=== PATIENT | male | born 1965 | race Two or more races ===

== ENCOUNTER 2025-03-23 10:15 | Day surgery (SDC) | payer MEDICAID ==
[2025-03-18 12:12] LABS: Urine Bacteria None Seen /hpf (None Seen)
[2025-03-18 12:21] LABS: Basophils # (auto) 0.1 10 ^3/uL (0-0.2); Basophils % (auto) 1.4 % (0.0-2.0); Eosinophils # (auto) 0.3 10 ^3/uL (0-0.8); Eosinophils % (auto) 5.5 % (0.0-7.0); Hematocrit 40.8 % (41.0-53.0); Hemoglobin 13.8 g/dL (13.5-17.5); Lymphocytes # (auto) 2.2 10 ^3/uL (0.4-5.4); Lymphocytes % (auto) 39.1 % (10.0-50.0); Mean Corpuscular Hemoglobin 31.2 pg (28.0-32.0); Mean Corpuscular Hgb Conc. 33.8 g/dL (32.0-36.0); Mean Corpuscular Volume 92.2 fL (80.0-100.0); Monocytes # (auto) 0.4 10 ^3/uL (0-1.3); Monocytes % (auto) 6.5 % (0.0-12.0); Neutrophils # (auto) 2.6 10 ^3/uL (1.6-8.6); Neutrophils % (auto) 47.5 % (37.0-80.0); Nucleated Red Blood Cells % 0.1 %; Platelet Count (auto) 203 10^3/uL (140-450); Red Blood Cells 4.42 10^6/uL (4.5-5.90); Red Cell Distribution Width 14.6 % (11.8-14.3); White Blood Cell 5.5 10^3/uL (4.4-10.8)
[2025-03-18 12:36] LABS: INR 0.99 (0.9-1.15); Partial Thromboplastin Time 24.9 SEC (24.5-34.5); Prothrombin Time 10.5 sec (9.3-11.8)
[2025-03-18 12:42] LABS: Alanine Aminotransferase 24 U/L (7-40); Albumin 4.5 g/dL (3.2-4.8); Alkaline Phosphatase 95 U/L (46-116); Anion Gap 1 (5-15); Aspartate Aminotransferase 18 U/L (13-40); BUN/Creatinine Ratio 11.9 (10.0-20.0); Bilirubin, Total 0.5 mg/dL (0.2-1.0); Blood Urea Nitrogen 13 mg/dL (9-23); Calcium 9.9 mg/dL (8.7-10.4); Carbon Dioxide 31 mmol/L (20-31); Glucose 84 mg/dL (74-106); Potassium 4.4 mmol/L (3.5-5.1); Sodium 143 mmol/L (136-145); Total Protein 6.7 g/dL (5.7-8.2)
[2025-03-18 12:45] LABS: Chloride 111 mmol/L (98-107)
[2025-03-18 12:56] LABS: Urine Blood Negative /uL (Negative); Urine Clarity Clear (Clear); Urine Color Yellow (Yellow); Urine Mucus FEW (None Seen); Urine Protein, UAD TRACE (Negative); Urine Specific Gravity 1.033 (1.001-1.035); Urine Squamous Epithelial Cell None Seen /hpf (<5); Urine Urobilinogen 2 mg/dL (Negative); Urine WBC < 1 /HPF (0-3); Urine pH 6.5 (5.0-9.0)
[~2025-03-23] VITALS: Ht 180.3 cm; Wt 72.1 kg
[~2025-03-23 10:15] MED LIST: ASCO500T11 GT; CHOL20007 OR; HYDR-4072 PO; METH50006 SL
[2025-03-23] MEDS ORDERED: ceFAZolin 2 GM/D5W50ml 50 ML IV ONE (11:27)
[2025-03-23] MEDS ORDERED: BUPIVACAINE 0.5% P/F INJ 10 ML VIAL ONE (11:40)
--- NOTE | 2025-03-23 12:01 | DVHOP2 ---
Operative Report - 2 Report Details Date: 03/23/25 Preop Diagnosis: 1. Left foot metatarsalgia 2. Left foot pain Postop Diagnosis: Left foot metatarsalgia Surgeon: Leidy Gustafson MD Anesthesiologist: See anesthesia Anesthesia: Mac Consent: The patient was informed of the risks and benefits of the procedure. These include but are not limited to complications of anesthesia, postoperative infection, incomplete relief of symptoms, recurrence of symptoms, damage to blood vessels, nerves and tendons, deep venous thrombosis, pulmonary embolism and possible need for repeat surgery in the future. Complications: None Estimated Blood Loss: Minimal Fluids: See anesthesia Findings: Consistent with diagnosis Indications for Surgery: Worsening left foot pain Name of Procedure Performed 1. Left foot second metatarsal earl osteotomy (81452) 2. Left foot third metatarsal earl osteotomy (39653) 3. Left foot fourth metatarsal earl osteotomy (39240) Procedure Details Procedure Details: PRE-PROCEDURE INFORMATION: In the pre-op holding area, the extremity to be operated on was clearly marked and the patient verified correct laterality of the marking. The patient was transferred to the OR table and placed in a supine position. A timeout was performed in which identification of the correct patient, procedure, location, and materials was done. The left foot and leg were prepped and draped in normal sterile fashion. DESCRIPTION OF PROCEDURE: Attention was directed to the right 2nd metatarsal head where a stab incision was made. The incision was deepened through blunt and sharp dissection. Care was taken to avoid damage to neurovascular structures throughout dissection. Incision was carried to the level of the 2nd metatarsal head or on fluoroscopy as well as preoperative x-rays, it was noted there was significant plantar flexion of the metatarsal head. Using an MIS bur, the an osteotomy was performed across the neck of the metatarsal head. The metatarsal head was then able to float. It was noted off intraoperative fluoroscopy, there was significant reduction deformity. Attention was directed to the right 3rd metatarsal head where a stab incision was made. The incision was deepened through blunt and sharp dissection. Care was taken to avoid damage to neurovascular structures throughout dissection. Incision was carried to the level of the 3rd metatarsal head or on fluoroscopy as well as preoperative x-rays, it was noted there was significant plantar flexion of the metatarsal head. Using an MIS bur, the an osteotomy was performed across the neck of the metatarsal head. The metatarsal head was then able to float. It was noted off intraoperative fluoroscopy, there was significant reduction deformity. Attention was directed to the right 4th metatarsal head where a stab incision was made. The incision was deepened through blunt and sharp dissection. Care was taken to avoid damage to neurovascular structures throughout dissection. Incision was carried to the level of the 4th metatarsal head or on fluoroscopy as well as preoperative x-rays, it was noted there was significant plantar flexion of the metatarsal head. Using an MIS bur, the an osteotomy was performed across the neck of the metatarsal head. The metatarsal head was then able to float. It was noted off intraoperative fluoroscopy, there was significant reduction deformity. All surgical wounds were irrigated copiously with saline and closed in layers with the aforementioned suture material. A dry sterile dressing was placed on the surgical extremity. The patient was placed in a postop shoe POSTOPERATIVE INFORMATION: The patient tolerated the above noted procedure and anesthesia well and was transferred to the PACU with vital signs stable, and vascular status intact with capillary refill intact to all digits. Postoperative instructions reviewed in detail with the patient with written instructions provided. Patient will return to clinic in approximately 10-14 days for first postoperative visit. Patient has the number of the clinic and was instructed to call prior to that time should any problems, questions, or concerns arise. Condition Good Disposition Home LEIDY GUSTAFSON DPM Mar 23, 2025 12:01
[2025-03-23] MEDS ORDERED: MIDAZOLAM HCL 2MG/2ML 2ml VIAL (1mg/ml) ONE (12:42)
[2025-03-23] MEDS ORDERED: fentaNYL CITRATE 100 MCG/2 ML VL ONE (12:42)
[2025-03-23] MEDS ORDERED: DexAMETHasone SOD PHOS 10MG/1ML VIAL INJ ONE (12:48)
[2025-03-23] MEDS ORDERED: PROPOFOL 10 MG/ML 20 ML IV ONE (12:48)
[2025-03-23] MEDS: LIDOCAINE 1% HCL (LOCAL ANESTH.) INJ 20ML MDV ONE (12:59)
[2025-03-23 13:05] VITALS: TEMP 97; O2SAT 100
[2025-03-23] MEDS ORDERED: hydrALAZINE HCL 20 MG/ML VL IV PRN (13:30)
[2025-03-23] MEDS ORDERED: ONDANSETRON HCL 4 MG/2 ML VIAL IV ONE (13:30)
[2025-03-23] MEDS ORDERED: HYDROmorphone HCL 2 MG/ML VL/or syr IV PRN (13:30)
[2025-03-23] MEDS ORDERED: MORPHINE SULFATE 4 MG/ML SYR/VIAL IV PRN (13:30)
[2025-03-23] MEDS ORDERED: MIDAZOLAM HCL 2MG/2ML 2ml VIAL (1mg/ml) IV PRN (13:30)
[2025-03-23 13:56] VITALS: BP 127/68; PULSE 48; RESP 19; O2SAT 98
== END 2025-03-23 14:05 | disposition home or self-care (01) ==
LOC: SUR 10:15
PROVIDERS: ATTEND Podiatrist
DX: M77.42 Metatarsalgia, left foot (principal); M77.8 Other enthesopathies, not elsewhere classified; I49.9 Cardiac arrhythmia, unspecified; Z79.899 Other long term (current) drug therapy; Z98.890 Other specified postprocedural states; Z88.0 Allergy status to penicillin
CPT/HCPCS: 28308; 36415; 80053; 81001; 85025; 85610; 85730; J0690; J1100; J2003; J2250; J2704; J3010; J3490

== ENCOUNTER 2025-07-06 11:08 | Inpatient (IN) | payer MEDICAID ==
[~2025-07-06] VITALS: Ht 182.9 cm; Wt 80.0 kg
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
[2025-07-06] MEDS: HYDROcodone-ACET 10/325MG TAB PO ONE (12:22)
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
[2025-07-06 13:00] VITALS: PULSE 50; RESP 13; O2SAT 100
[2025-07-06] MEDS: MORPHINE SULFATE 4 MG/ML SYR/VIAL IV ONE (13:35)
[2025-07-06] MEDS: ONDANSETRON HCL 4 MG/2 ML VIAL IV ONE (13:36)
[2025-07-06] MEDS: SODIUM CHLORIDE 0.9% 1,000 ML IV SCH (15:54)
[2025-07-06] MEDS: TETANUS-DIPTH-ACEL PERTUSSIS 0.5ML SYR Tdap IM ONE (16:01)
[2025-07-06 16:11] LABS: Hematocrit 42.6 % (41.0-53.0); Hemoglobin 14.4 g/dL (13.5-17.5); Mean Corpuscular Hemoglobin 31.3 pg (28.0-32.0); Mean Corpuscular Volume 92.3 fL (80.0-100.0); Nucleated Red Blood Cells % 0.1 %
[2025-07-06 16:29] LABS: Alanine Aminotransferase 22 U/L (7-40); Albumin 4.4 g/dL (3.2-4.8); Alkaline Phosphatase 92 U/L (46-116); Anion Gap 5 (5-15); BUN/Creatinine Ratio 12.7 (10.0-20.0); Blood Urea Nitrogen 13 mg/dL (9-23); Calcium 9.2 mg/dL (8.7-10.4); Carbon Dioxide 29 mmol/L (20-31); Glucose 102 mg/dL (74-106); Magnesium 2.1 mg/dL (1.6-2.6); Potassium 4.1 mmol/L (3.5-5.1); Sodium 142 mmol/L (136-145); Total Protein 7.1 g/dL (5.7-8.2); Triglycerides 53 mg/dL (< 150)
[2025-07-06 16:30] LABS: Bilirubin, Total 0.4 mg/dL (0.2-1.0); INR 1.02 (0.9-1.15); Partial Thromboplastin Time 23.3 SEC (24.5-34.5); Prothrombin Time 10.8 sec (9.3-11.8)
[2025-07-06 16:33] LABS: Chloride 108 mmol/L (98-107); Cholesterol 205 mg/dL (< 200); HDL Cholesterol 83 mg/dL (40-59)
--- NOTE | 2025-07-06 17:05 | ECG ---
[facility] Test Date: 2025-07-06 Test Time: 16:18:50 Pat Name: LAZARO ELIZONDO Department: Room: [address] [place] [address] Gender: M Application Defense Manager: STEFAN : 1965 Requested By: SYLVIA CARMONA Order Number: [id number] Reading MD: Dillon Giordano Measurements Intervals [place] Rate: 45 P: 80 RI: 147 QRS: 70 QRSD: 91 T: -81 QT: 461 QTc: 399 Interpretive Statements Sinus bradycardia Probable anteroseptal infarct, old Abnormal T, consider ischemia, diffuse leads Electronically Signed On 07-07-2025 16:05:29 PDT by Dillon Giordano Please click the below link to view image of tracing.
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
[2025-07-06 19:08] LABS: Urine Amorphous Crystal FEW /hpf (None Seen); Urine Protein, UAD TRACE (Negative)
[2025-07-06] MEDS: ONDANSETRON HCL 4 MG/2 ML VIAL IV PRN (19:09)
[2025-07-06] MEDS: MORPHINE SULFATE INJ 2 MG/ml SYRG IV PRN (19:12)
[2025-07-06 19:13] LABS: Cannabinoid Screen, Urine Pos (NEGATIVE)
[2025-07-06 19:14] LABS: Amphetamine Screen, Urine Neg (NEGATIVE); Barbiturate Scree,Urine Neg (NEGATIVE); Benzodiazephine Screen, Urine Neg (NEGATIVE); Cocaine Screen, Urine Neg (NEGATIVE); Opiate Scree,Urine Pos (NEGATIVE); Phencyclidine Screen, Urine Neg (NEGATIVE)
[2025-07-06 21:08] VITALS: PULSE 48; RESP 14; O2SAT 100
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
[2025-07-07 06:53] LABS: Anion Gap 7 (5-15); Carbon Dioxide 25 mmol/L (20-31); Chloride 106 mmol/L (98-107); Potassium 4.5 mmol/L (3.5-5.1); Sodium 138 mmol/L (136-145)
[2025-07-07 06:55] LABS: Calcium 8.9 mg/dL (8.7-10.4)
[2025-07-07 06:59] LABS: BUN/Creatinine Ratio 6.0 (10.0-20.0); Glucose 104 mg/dL (74-106)
[2025-07-07 07:06] LABS: Hematocrit 41.8 % (41.0-53.0); Hemoglobin 14.4 g/dL (13.5-17.5); Mean Corpuscular Hemoglobin 31.6 pg (28.0-32.0); Mean Corpuscular Volume 91.8 fL (80.0-100.0); Nucleated Red Blood Cells % 0.0 %
[2025-07-07 07:10] LABS: Blood Urea Nitrogen 6 mg/dL (9-23)
[2025-07-07 07:50] VITALS: PULSE 53; RESP 15; TEMP 98.7; O2SAT 100
[2025-07-07] MEDS: PANTOPRAZOLE 40 MG/10 ML VIAL INJ IV SCH (12:59)
[2025-07-07] MEDS: ENOXAPARIN SOD 40 MG/0.4 ML SYRINGE SC SCH (13:07)
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
[2025-07-07 17:02] VITALS: BP 98/78; PULSE 51; RESP 15; O2SAT 100
[2025-07-07] MEDS ORDERED: IBUP-1454 PO (17:23)
[2025-07-07] MEDS ORDERED: ACE650RS PR (17:23)
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
--- NOTE | 2025-07-08 00:38 | DVHSR ---
APPROVED REPORT EXAM: Two-dimensional and M-mode echocardiogram with Doppler and color Doppler. Blood Pressure: 136/69 mmHg INDICATION Bradycardia RISK FACTORS Height: 6', Weight: 176 DIMENSIONS LVDd5.0 (3.8-5.7cm)LA (2D)3.9 (1.9-4.0cm)Aortic Root3.0 (2.0-3.7cm) LVDs2.9 (2.5-4.0cm)LA (MM) (1.9-4.0cm)Aortic Cusp Exc1.8 (1.5-2.0cm) EF (%) 74.0 (55-70%)Rt. Atrium4.6 (1.9-4.0cm)Asc. Aorta3.3 cm IVSd0.9 (0.7-1.1cm)RV (D) (1.8-2.4cm) PWd1.0 (0.7-1.1cm) Mitral Valve MitralMitral Stenosis E/A ratio0.02D MVAcm2 Aortic Valve Aortic ValveAortic Stenosis LVOT Diameter2.1 (1.8-2.4cm)Doppler AVAcm2 2D AVA1.70cm2 Pulmonic Valve V21.20m/s Other Information Quality : Technically LimitedRhythm : Technically limited study due to patient position. Conclusion LV EF IS 70% MILD MR MILD AORTIC REGURGITATION NORMAL VALVES NO EFFUSION
== END 2025-07-07 18:14 | disposition home or self-care (01) | DRG 342 ==
LOC: ER 11:08 → OVERFLOW 15:26
PROVIDERS: ADMIT Student in an Organized Health Care Education/Training Program; ATTEND Student in an Organized Health Care Education/Training Program
DX: S82.872A Displaced pilon fracture of left tibia, initial encounter for closed fracture (principal); E55.9 Vitamin D deficiency, unspecified; E78.5 Hyperlipidemia, unspecified; K21.9 Gastro-esophageal reflux disease without esophagitis; F17.210 Nicotine dependence, cigarettes, uncomplicated; R00.1 Bradycardia, unspecified; F12.10 Cannabis abuse, uncomplicated; V29.888A Rider (driver) (passenger) of other motorcycle injured in other specified transport accidents, initial encounter; Y93.79 Activity, other specified sports and athletics; Y92.89 Other specified places as the place of occurrence of the external cause; Y99.8 Other external cause status
CPT/HCPCS: 36415; 71046; 73590; 73610; 73700; 80048; 80053; 80061; 80307; 81001; 82306; 82607; 83036; 83605; 83735; 84100; 84443; 85025; 85610; 85730; 90715; 93005; 93306; 96374; G0378; J2405; J2470

== ENCOUNTER 2025-07-19 10:26 | Inpatient (IN) | payer MEDICAID ==
[~2025-07-19] VITALS: Ht 180.3 cm; Wt 74.9 kg
[~2025-07-19 10:26] MED LIST changes: +ACE650RS PR; +IBUP-1454 PO
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
[2025-07-19 11:35] LABS: Hematocrit 42.1 % (41.0-53.0); Hemoglobin 14.5 g/dL (13.5-17.5); Mean Corpuscular Hemoglobin 31.1 pg (28.0-32.0); Mean Corpuscular Volume 90.7 fL (80.0-100.0); Nucleated Red Blood Cells % 0.1 %
[2025-07-19 11:44] LABS: Chloride 103 mmol/L (98-107); Potassium 4.0 mmol/L (3.5-5.1); Sodium 140 mmol/L (136-145)
[2025-07-19 11:45] LABS: Anion Gap 10 (5-15); Calcium 9.7 mg/dL (8.7-10.4); Carbon Dioxide 27 mmol/L (20-31)
[2025-07-19 11:50] LABS: BUN/Creatinine Ratio 16.0 (10.0-20.0); Blood Urea Nitrogen 15 mg/dL (9-23)
[2025-07-19 11:52] LABS: INR 0.99 (0.9-1.15); Partial Thromboplastin Time 25.6 SEC (24.5-34.5); Prothrombin Time 10.5 sec (9.3-11.8)
[2025-07-19 11:57] LABS: Glucose 139 mg/dL (74-106)
[2025-07-19] MEDS ORDERED: ACETAMINOPHEN 325 MG TAB PO PRN (12:45)
--- NOTE | 2025-07-19 13:23 | DVH ---
CHEST RADIOGRAPH Indication: Pre-Op Technique: Single frontal view of the chest was obtained COMPARISON: XY CHEST TWO VIEWS ROUTINE on DOS: 07/07/25, XY CHEST TWO VIEWS ROUTINE on DOS: 03/18/25 FINDINGS: Lines and Tubes: None Lungs: Clear Pleura: No effusion. No pneumothorax. Cardiomediastinal contours: Unremarkable Bones: Thoracic spinal fixation hardware. IMPRESSION: No acute disease.
[2025-07-19] MEDS ORDERED: ROSU10TA64 PO (13:46)
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
[2025-07-19] MEDS: ONDANSETRON HCL 4 MG/2 ML VIAL IV PRN (14:43)
[2025-07-19] MEDS: MORPHINE SULFATE INJ 2 MG/ml SYRG IV PRN (14:44)
[2025-07-19] MEDS: MORPHINE SULFATE 4 MG/ML SYR/VIAL ONE (14:48)
[2025-07-19 15:30] VITALS: PULSE 54; RESP 15; O2SAT 98
[2025-07-19 17:00] VITALS: BP 129/79; PULSE 65; RESP 17; TEMP 98.7; O2SAT 99
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
[2025-07-19 19:00] LABS: Urine Protein, UAD Negative (Negative)
[2025-07-19 20:00] VITALS: PULSE 52; RESP 16; O2SAT 96
[2025-07-19 21:00] VITALS: BP 124/64; PULSE 55; RESP 16; TEMP 97.7; O2SAT 98
[2025-07-19] MEDS: ATORVASTATIN 20 MG TAB PO SCH (22:00)
[2025-07-19] MEDS: MORPHINE SULFATE 4 MG/ML SYR/VIAL IV PRN (23:12)
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
[2025-07-20] VITALS (10 sets, daily range): BP systolic 108–143; BP diastolic 60–74; PULSE 49–80; RESP 12–17; TEMP 96.6–98.1; O2SAT 96–100
[2025-07-20] MEDS: ceFAZolin 2 GM/D5W50ml 50 ML IV ONE (06:42)
[2025-07-20] MEDS ORDERED: fentaNYL CITRATE 100 MCG/2 ML VL ONE (07:38)
[2025-07-20] MEDS ORDERED: MIDAZOLAM HCL 2MG/2ML 2ml VIAL (1mg/ml) ONE (07:38)
[2025-07-20] MEDS ORDERED: HYDROmorphone HCL 2 MG/ML VL/or syr ONE (07:38)
[2025-07-20] MEDS ORDERED: fentaNYL CITRATE 5 ML ONE (07:38)
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
[2025-07-20] MEDS: ROPIVACAINE 0.5% (5MG/ML) 20ML AMPULE IJ ONE (07:51)
[2025-07-20] MEDS ORDERED: MIDAZOLAM HCL 2MG/2ML 2ml VIAL (1mg/ml) IV PRN (08:15)
[2025-07-20] MEDS ORDERED: MORPHINE SULFATE 4 MG/ML SYR/VIAL IV PRN (08:15)
[2025-07-20] MEDS ORDERED: HYDROmorphone HCL 2 MG/ML VL/or syr IV PRN (08:15)
[2025-07-20] MEDS ORDERED: fentaNYL CITRATE 100 MCG/2 ML VL IV PRN (08:15)
[2025-07-20] MEDS: KETOROLAC TROMETH 30 MG/ML 1ML VIAL IV ONE (08:15)
[2025-07-20] MEDS ORDERED: hydrALAZINE HCL 20 MG/ML VL IV PRN (08:15)
[2025-07-20] MEDS: BUPIVACAINE 0.25% INJ 50ML VIAL ONE (08:24)
[2025-07-20] MEDS ORDERED: PROPOFOL 10 MG/ML 20 ML IV ONE (08:49)
[2025-07-20] MEDS ORDERED: ONDANSETRON HCL 4 MG/2 ML VIAL ONE (08:50)
[2025-07-20] MEDS: SUCCINYLCHOLINE CHLORIDE 20 MG/ML 10ML VIAL IV ONE (08:53)
--- NOTE | 2025-07-20 09:08 | ECG ---
[facility] Test Date: 2025-07-19 Test Time: 17:34:29 Pat Name: LAZARO ELIZONDO Department: Respiratoy Room: 0297T Gender: M Portrait Painter: LISETH ASH LVN : 1965 Requested By: BRITT JIN Order Number: [id number] Reading MD: Dillon Giordano Measurements Intervals [place] Rate: 57 P: 89 GA: 149 QRS: 268 QRSD: 98 T: -82 QT: 443 QTc: 432 Interpretive Statements Sinus rhythm Markedly posterior QRS axis Probable anteroseptal infarct, old Abnormal T, consider ischemia, diffuse leads Electronically Signed On 07-21-2025 21:09:16 PDT by Dillon Giordano Please click the below link to view image of tracing.
--- NOTE | 2025-07-20 10:08 | DVHOP2 ---
Operative Report - 2 Report Details Date: 07/20/25 Preop Diagnosis: Left tibial plafond fracture extending proximal to the proximal third of tibia Postop Diagnosis: same Surgeon: Serge Belle MD Silver Steward: none Anesthesiologist: Dr Lucio Anesthesia: General Drains: none Implant: Iliozarov external fixator Consent: The patient was informed of the risks and benefits of the procedure. These include but are not limited to complications of anesthesia, postoperative infection, incomplete relief of symptoms, recurrence of symptoms, damage to blood vessels, nerves and tendons, deep venous thrombosis, pulmonary embolism and possible need for repeat surgery in the future. Complications: none Estimated Blood Loss: minimal Fluids: 1 L crystalloid Findings: comminuted fracture left tibial plafond extending to proximal 1/3 of tibia Indications for Surgery: unstable displaced fracture Name of Procedure Performed External fixation of left tibial plafond fracture with ilizarov system Procedure Details Procedure Details: Patient brought in the operating room given general anesthesia Dr. Pimentel nonsterile tourniquet placed on left thigh tourniquet not used during case time- out performed after sterile prep and drape left lower extremity confirming left side correct side external fixation using yellow desire of system of left tibial plafond fracture extending to proximal tibia correct procedure after review of the operative consent history and physical my initials on left leg no tourniquet or exsanguination during the case it was our frame was preassembled to be floor ring system going from proximal tibia to plafond 3 half pins placed in the proximal ring then the mid fracture fragments were seen to be seen to be well reduced therefore no need to use the middle ring then the distal to arrange for used to placed for attention wires to drooling syndesmosis wires and 2 transver se wires tensioned and and clamped to ring C-arm fluoro showed anatomic alignment of plafond and good acceptable overall alignment of distal 3rd fracture no significant hemostasis are no significant bleeding during the case excellent hemostasis to drilling wires were placed in the foot 1st and 2nd metatarsal and 5th through 2nd metatarsal and bent up in hook to the frame to keep foot in a neutral dorsiflexion no drainage specimens complications patient is to be nonweightbearing 6 weeks follow up in Orthopedic office in 2 weeks Specimen: none Condition Stable Disposition Still a Patient SERGE BELLE MD Jul 20, 2025 10:08
[2025-07-20] MEDS ORDERED: NITROGLYCERIN 0.4 MG SL TAB SL PRN (10:15)
[2025-07-20] MEDS: ACETAMINOPHEN IV 100 ML IV ONE (10:26)
[2025-07-20] MEDS: ACETAMINOPHEN IV 1000 MG/100ML (10MG/ML) IV ONE (10:35)
--- NOTE | 2025-07-20 10:58 | DVH ---
C-ARM FLUOROSCOPY: PROCEDURE: left tib fib FLUOROSCOPY TIME: 16 sec DAP: 0.46 mgy FINDINGS: Spot intraoperative C arm radiographs demonstrating left tib fib orif. IMPRESSION: Please refer to surgical report for detailed findings.
--- NOTE | 2025-07-20 10:58 | DVH ---
C-ARM FLUOROSCOPY: PROCEDURE: left tib fib FLUOROSCOPY TIME: 16 sec DAP: 0.46 mgy FINDINGS: Spot intraoperative C arm radiographs demonstrating left tib fib orif. IMPRESSION: Please refer to surgical report for detailed findings.
[2025-07-20] MEDS: ONDANSETRON HCL 4 MG/2 ML VIAL IV PRN (11:06)
[2025-07-20] MEDS: CLINDAMYCIN 600MG IV 50 ML IV SCH (12:22)
[2025-07-20] MEDS: ceFAZolin 1GM/50ML 50 ML IV SCH (12:31)
[2025-07-20 14:30] LABS: Hematocrit 38.7 % (41.0-53.0); Hemoglobin 13.2 g/dL (13.5-17.5); Mean Corpuscular Hemoglobin 31.2 pg (28.0-32.0); Mean Corpuscular Volume 91.2 fL (80.0-100.0); Nucleated Red Blood Cells % 0.1 %
[2025-07-20 14:34] LABS: Alanine Aminotransferase 41 U/L (7-40); Albumin 4.2 g/dL (3.2-4.8); Alkaline Phosphatase 117 U/L (46-116); Anion Gap 10 (5-15); BUN/Creatinine Ratio 21.4 (10.0-20.0); Bilirubin, Total 0.4 mg/dL (0.2-1.0); Blood Urea Nitrogen 22 mg/dL (9-23); Calcium 9.3 mg/dL (8.7-10.4); Carbon Dioxide 27 mmol/L (20-31); Chloride 103 mmol/L (98-107); Glucose 185 mg/dL (74-106); Potassium 4.2 mmol/L (3.5-5.1); Sodium 140 mmol/L (136-145); Total Protein 6.8 g/dL (5.7-8.2)
--- NOTE | 2025-07-20 23:56 | DVHPN2 ---
Progress Note - Dictate Date Seen: Jul 20, 2025 Has the PT tested + for MRSA If YES, has PT been informed?: No Medical Necessity Reason Pt with a Central, PICC or Fol: No Subjective Patient was seen and evaluated in follow up. Patient underwent external fixation of left tibial plafond fracture with ilizarov system by . The patient tolerated procedure well. Per RN,patient had multiple vomiting episodes after surgery. WBC 12.6. vital signs Vital Sign Date Time Temp Pulse Resp B/P (MAP) Pulse Ox O2 Delivery O2 Flow Rate FiO2 07/20/25 17:00 97.6 49 15 143/74 (97) 100 97.6 07/20/25 11:45 Nasal Cannula* 2 28 Total Intake and Output 07/19/25 07/19/25 07/20/25 14:59 22:59 06:59 Intake Total 120 ml 330 ml Output Total 450 ml Balance 120 ml -120 ml medications Current Medications Medications Dose Ordered Sig/Gregoria Route Start Time Stop Time Status Last Admin Dose Admin Acetaminophen/ Hydrocodone Bitart 1 tab Q4HP PRN PO 07/19/25 12:45 Ondansetron HCl 4 mg Q4HP PRN IV 07/19/25 12:45 07/20/25 14:12 4 MG Docusate Sodium 100 mg BIDPRN PRN PO 07/19/25 12:45 Acetaminophen 650 mg Q6HP PRN PO 07/19/25 12:45 Atorvastatin Calcium 20 mg HS PO 07/19/25 22:00 Morphine Sulfate 2 mg Q4HPRN PRN IV 07/19/25 23:00 07/19/25 23:12 2 MG Cefazolin Sodium 50 ml @ 50 mls/hr Q6H IV 07/20/25 12:00 07/21/25 00:59 07/20/25 18:23 50 MLS/HR Clindamycin Phosphate 50 ml @ 50 mls/hr Q6HR IV 07/20/25 12:00 07/21/25 00:59 07/20/25 18:23 50 MLS/HR Enoxaparin Sodium 30 mg Q12HR SC 07/21/25 10:00 Nitroglycerin 0.4 mg Q5MINP PRN SL 07/20/25 10:15 objective General Appearance: Alert, Oriented X3, Cooperative, moderate distress HEENT: Atraumatic, PERRLA, Mucous membr. 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 Fracture of right tibia/fibula. Assessment/Plan Continued all current supportive medical care. Morphine and [place] for pain management. IV antibiotics as ordered. DVT prophylactics. Additional plan as per the hospital course. Plan discussed with: Patient KENDAL SHAIKH MD Jul 20, 2025 20:28
[2025-07-21] VITALS (8 sets, daily range): BP systolic 115–146; BP diastolic 60–86; PULSE 53–76; RESP 16–18; TEMP 97.9–99; O2SAT 97–100
[2025-07-21] MEDS: HYDROcodone-ACET 5/325MG TAB PO PRN (01:01)
[2025-07-21 07:35] LABS: Hematocrit 38.0 % (41.0-53.0); Hemoglobin 13.4 g/dL (13.5-17.5); Mean Corpuscular Hemoglobin 31.7 pg (28.0-32.0); Mean Corpuscular Volume 89.6 fL (80.0-100.0); Nucleated Red Blood Cells % 0.0 %
[2025-07-21 07:40] LABS: Alanine Aminotransferase 32 U/L (7-40); Albumin 4.2 g/dL (3.2-4.8); Alkaline Phosphatase 110 U/L (46-116); Anion Gap 8 (5-15); BUN/Creatinine Ratio 14.4 (10.0-20.0); Bilirubin, Total 0.5 mg/dL (0.2-1.0); Blood Urea Nitrogen 13 mg/dL (9-23); Calcium 9.5 mg/dL (8.7-10.4); Carbon Dioxide 29 mmol/L (20-31); Chloride 103 mmol/L (98-107); Glucose 88 mg/dL (74-106); Magnesium 2.1 mg/dL (1.6-2.6); Potassium 4.2 mmol/L (3.5-5.1); Sodium 140 mmol/L (136-145); Total Protein 7.0 g/dL (5.7-8.2)
[2025-07-21] MEDS: ENOXAPARIN SOD 30 MG/0.3 ML SYRINGE SC SCH (09:39)
[2025-07-21] MEDS ORDERED: PHENYLEPHRINE INJ 10 MG/ML 5ML VIAL IV ONE (12:35)
--- NOTE | 2025-07-21 13:52 | DVHPN2 ---
Progress Note - Dictate Date Seen: Jul 21, 2025 Has the PT tested + for MRSA If YES, has PT been informed?: No Medical Necessity Reason Pt with a Central, PICC or Fol: No Subjective Patient was lying comfortably in bed during my evaluation and reports some postoperative a left lower leg pain that is somewhat improved with the help of pain medication. Patient reports that he was able to get up and walk with physical therapy and tried staying off of his surgical leg but noted that when she returned to his bed he had some bleeding on his dressings. Patient was otherwise feeling well denying any other complaints or concerns during my evaluation. vital signs Vital Sign Date Time Temp Pulse Resp B/P (MAP) Pulse Ox O2 Delivery O2 Flow Rate FiO2 07/21/25 10:19 76 17 138/77 07/21/25 08:55 99.0 100 99.0 07/21/25 07:30 Room Air* 0 21 Total Intake and Output 07/20/25 07/20/25 07/21/25 15:00 23:00 07:00 Intake Total 500 ml 440 ml Output Total 800 ml 1300 ml Balance -300 ml -860 ml medications Current Medications Medications Dose Ordered Sig/Gregoria Route Start Time Stop Time Status Last Admin Dose Admin Acetaminophen/ Hydrocodone Bitart 1 tab Q4HP PRN PO 07/19/25 12:45 07/21/25 06:46 1 TAB Ondansetron HCl 4 mg Q4HP PRN IV 07/19/25 12:45 07/21/25 06:45 4 MG Docusate Sodium 100 mg BIDPRN PRN PO 07/19/25 12:45 Acetaminophen 650 mg Q6HP PRN PO 07/19/25 12:45 Atorvastatin Calcium 20 mg HS PO 07/19/25 22:00 Morphine Sulfate 2 mg Q4HPRN PRN IV 07/19/25 23:00 07/21/25 10:19 2 MG Enoxaparin Sodium 30 mg Q12HR SC 07/21/25 10:00 07/21/25 09:39 30 MG Nitroglycerin 0.4 mg Q5MINP PRN SL 07/20/25 10:15 objective A&O x4 in no acute distress Left lower extremity range of motion grossly limited with pain on movement Dressings with light blood but otherwise intact No distal edema or calf tenderness to palpation Neurovascularly intact with cap refill less than 2 seconds laboratory and microbiology Laboratory Tests 07/21/25 06:09 Test 07/21/25 06:09 Range/Units Serum Glucose 88 74-106 mg/dL Assessment/Plan Continue current management as well as pain control and reminded the patient to remain nonweightbearing for six weeks from the date of surgery. We will continue monitoring the patient and we will continue with his dressings as they are as stairs currently no active bleeding and dressings appeared dry during my evaluation and patient would like to avoid moving the leg as much as possible due to the pain. Thank you for allowing us to participate in care of your patient. Plan discussed with: Patient MARAH RAMSEY Jul 21, 2025 13:52
--- NOTE | 2025-07-21 21:56 | DVHPN2 ---
Progress Note - Dictate Date Seen: Jul 21, 2025 Has the PT tested + for MRSA If YES, has PT been informed?: No Medical Necessity Reason Pt with a Central, PICC or Fol: No Subjective Patient was seen and evaluated in follow up. No overnight events. Patient complains of LLE pain. CBC is WNL. Telemetry reviewed. vital signs Vital Sign Date Time Temp Pulse Resp B/P (MAP) Pulse Ox O2 Delivery O2 Flow Rate FiO2 07/21/25 10:19 76 17 138/77 07/21/25 08:55 99.0 100 99.0 07/21/25 07:30 Room Air* 0 21 Total Intake and Output 07/20/25 07/20/25 07/21/25 15:00 23:00 07:00 Intake Total 500 ml 440 ml Output Total 800 ml 1300 ml Balance -300 ml -860 ml medications Current Medications Medications Dose Ordered Sig/Gregoria Route Start Time Stop Time Status Last Admin Dose Admin Acetaminophen/ Hydrocodone Bitart 1 tab Q4HP PRN PO 07/19/25 12:45 07/21/25 06:46 1 TAB Ondansetron HCl 4 mg Q4HP PRN IV 07/19/25 12:45 07/21/25 06:45 4 MG Docusate Sodium 100 mg BIDPRN PRN PO 07/19/25 12:45 Acetaminophen 650 mg Q6HP PRN PO 07/19/25 12:45 Atorvastatin Calcium 20 mg HS PO 07/19/25 22:00 Morphine Sulfate 2 mg Q4HPRN PRN IV 07/19/25 23:00 07/21/25 10:19 2 MG Enoxaparin Sodium 30 mg Q12HR SC 07/21/25 10:00 07/21/25 09:39 30 MG Nitroglycerin 0.4 mg Q5MINP PRN SL 07/20/25 10:15 objective General Appearance: Alert, Oriented X3, Cooperative, moderate distress HEENT: Atraumatic, PERRLA, Mucous membr. 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 Fracture of right tibia/fibula. Assessment/Plan Continued all current supportive medical care. Morphine and [place] for pain management. IV antibiotics as ordered. DVT prophylactics. Additional plan as per the hospital course. Plan discussed with: Patient KENDAL SHAIKH MD Jul 21, 2025 13:08
[2025-07-22] VITALS (8 sets, daily range): BP systolic 125–141; BP diastolic 71–83; PULSE 51–69; RESP 16–19; TEMP 97.8–98.5; O2SAT 97–100
--- NOTE | 2025-07-22 07:40 | DVHPN2 ---
Progress Note - Dictate Date Seen: Jul 22, 2025 Has the PT tested + for MRSA If YES, has PT been informed?: No Medical Necessity Reason Pt with a Central, PICC or Fol: Yes The following are medically ne: Alejandra Catheter Subjective Patient was lying comfortably in bed during my evaluation and reports some postoperative a left lower leg pain that is continues to be somewhat improved with the help of pain medication. Patient reports that he has continued to get up and walk remaining nonweightbearing on his surgical leg and has not had any further issues with bleeding to his dressings. Patient was complaining of concerns with his Alejandra catheter as he has been noticing leakage and would like to have removed. Patient was otherwise feeling well denying any other complaints or concerns during my evaluation. vital signs Vital Sign Date Time Temp Pulse Resp B/P (MAP) Pulse Ox O2 Delivery O2 Flow Rate FiO2 07/22/25 05:00 98.2 59 19 141/83 (102) 97 98.2 07/21/25 20:00 Room Air* 0 21 Total Intake and Output 07/21/25 07/21/25 07/22/25 15:00 23:00 07:00 Intake Total 354 ml 800 ml 400 ml Output Total 800 ml 1200 ml Balance 354 ml 0 ml -800 ml medications Current Medications Medications Dose Ordered Sig/Gregoria Route Start Time Stop Time Status Last Admin Dose Admin Acetaminophen/ Hydrocodone Bitart 1 tab Q4HP PRN PO 07/19/25 12:45 07/21/25 21:55 1 TAB Ondansetron HCl 4 mg Q4HP PRN IV 07/19/25 12:45 07/21/25 06:45 4 MG Docusate Sodium 100 mg BIDPRN PRN PO 07/19/25 12:45 Acetaminophen 650 mg Q6HP PRN PO 07/19/25 12:45 Atorvastatin Calcium 20 mg HS PO 07/19/25 22:00 Morphine Sulfate 2 mg Q4HPRN PRN IV 07/19/25 23:00 07/21/25 10:19 2 MG Nitroglycerin 0.4 mg Q5MINP PRN SL 07/20/25 10:15 Enoxaparin Sodium 30 mg DAILY SC 07/22/25 10:00 objective A&O x4 in no acute distress Left lower extremity range of motion grossly limited with pain on movement Dressings with light dry blood but otherwise intact No distal edema or calf tenderness to palpation Neurovascularly intact with cap refill less than 2 seconds laboratory and microbiology Laboratory Tests 07/21/25 06:09 Test 07/21/25 06:09 Range/Units Serum Glucose 88 74-106 mg/dL Assessment/Plan Continue current management as well as pain control and reminded the patient to remain nonweightbearing for six weeks from the date of surgery. Placed order to remove the patient's Alejandra catheter. I had I advised the patient to remain strictly nonweightbearing with lower extremity limb elevation for six weeks from date of surgery and advised him to follow up with Dr. Mercedes in 10-14 days for his 1st postoperative evaluation. Thank you for allowing us to participate in care of your patient. Plan discussed with: Patient MARAH RAMSEY Jul 22, 2025 07:40
[2025-07-22] MEDS: ENOXAPARIN SOD 30 MG/0.3 ML SYRINGE SC SCH (09:43)
[2025-07-22] MEDS: DOCUSATE SOD 100 MG CAP PO PRN (09:45)
--- NOTE | 2025-07-22 14:23 | DVHPN2 ---
Subjective No new complaints Changes from previous H/P or p: Changes Eyes: No Pain, No Vision change, No Conjunctivae inflammation, No Eyelid inflammation, No Other, No Redness ENT: No Ear pain, No Ear discharge, No Nose pain, No Nose discharge, No Nose congestion, No Mouth pain, No Mouth swelling, No Throat pain, No Throat swelling, No Other Cardiovascular: No Chest Pain, No Palpitations, No Orthopnea, No Paroxysmal Noc. Dyspnea, No Edema, No Lt Headedness, No Other Respiratory: No Cough, No Dry, No Shortness of breath, No SOB with excertion, No Wheezing, No Hemoptysis, No Pleuritic Pain, No Sputum, No Other Gastrointestinal: No Nausea, No Vomiting, No Abdominal Pain, No Diarrhea, No Constipation, No Melena, No Hematochezia, No Other Genitourinary: No Dysuria, No Frequency, No Incontinence, No Hematuria, No Retention, No Other Musculoskeletal: No other, No neck pain, No shoulder pain, No arm pain, No back pain, No hand pain; leg pain (right leg); No foot pain Skin: No Rash, No Lesions, No Jaundice, No Bruising, No Other Objective Vitals Vital Signs Date Time Temp Pulse Resp B/P (MAP) Pulse Ox O2 Delivery O2 Flow Rate FiO2 07/22/25 09:00 98.4 62 18 127/72 (90) 98 98.4 07/22/25 08:00 Room Air* 0 21 Intake/Output Intake and Output 07/22/25 07:00 Intake Total 1554 ml Output Total 2000 ml Balance -446 ml Intake Oral 1154 ml Tube Feeding 400 ml Output Urine Total 2000 ml General Appearance: Alert, Oriented X3, Cooperative, No acute distress Lungs: Clear to auscultation, Normal air movement Cardiovascular: Regular rate, Normal S1, Normal S2, No murmurs Abdomen: Normal bowel sounds, Soft, No tenderness Extremities: No edema Medications Current Medications Medications Dose Ordered Sig/Gregoria Route Start Time Stop Time Status Last Admin Dose Admin Acetaminophen/ Hydrocodone Bitart 1 tab Q4HP PRN PO 07/19/25 12:45 07/21/25 21:55 1 TAB Ondansetron HCl 4 mg Q4HP PRN IV 07/19/25 12:45 07/21/25 06:45 4 MG Docusate Sodium 100 mg BIDPRN PRN PO 07/19/25 12:45 07/22/25 09:45 100 MG Acetaminophen 650 mg Q6HP PRN PO 07/19/25 12:45 Atorvastatin Calcium 20 mg HS PO 07/19/25 22:00 Morphine Sulfate 2 mg Q4HPRN PRN IV 07/19/25 23:00 07/21/25 10:19 2 MG Nitroglycerin 0.4 mg Q5MINP PRN SL 07/20/25 10:15 Enoxaparin Sodium 30 mg DAILY SC 07/22/25 10:00 Laboratory Results Laboratory Tests 07/21/25 06:09 Urinalysis Test 07/19/25 18:02 Urine Color Light-yellow (Yellow) Urine Clarity Clear (Clear) Urine pH 6.0 (5.0-9.0) Urine Specific [place] 1.025 (1.001-1.035) Urine Protein Negative (Negative) Urine Ketones Negative (Negative) Urine Blood Negative /uL (Negative) Urine Nitrite Negative (Negative) Urine Bilirubin Negative (Negative) Urine Urobilinogen Normal mg/dL (Negative) Urine Leukocyte Esterase Negative /uL (Negative) Urine RBC <1 /hpf (0 - 3) Urine Microscopic WBC < 1 /HPF (0-3) Urine Squamous Epithelial Cells None seen /hpf (<5) Urine Bacteria None seen /hpf (None Seen) Urine Mucus Few (None Seen) Urine Glucose Normal mg/dL (Normal) Microbiology Microbiology Date/Time Source Procedure Growth Status 07/19/25 17:24 Nose MRSA Screen - Final Complete Assessment/Plan Assessment/Plan Left tibial plafond fracture extending proximal to the proximal third of tibia Asymptomatic sinus bradycardia PLAN: Nonweight bearing LLE Pain control Lovenox DC planning Order wheelchair Plan discussed with: Patient My Orders Orders - DALJIT GALINDO MD Procedure Category Date Status Time Enoxaparin Sodium PHA 07/22/25 In Process (Lovenox) 10:00 * [place] Wet Process CONS 07/22/25 Verified Consult Date of Service: Jul 22, 2025 Billing Provider: DALJIT GALINDO MD Common Visit Codes: NOT BILLABLE DALJIT GALINDO MD Jul 22, 2025 14:23
[2025-07-22] MEDS ORDERED: POLYETHYLENE GLYCOL 17 GM PWDR PO PRN (16:15)
--- NOTE | 2025-07-22 23:15 | DVHPN2 ---
Progress Note - Dictate Date Seen: Jul 22, 2025 Has the PT tested + for MRSA If YES, has PT been informed?: No Medical Necessity Reason Pt with a Central, PICC or Fol: Yes The following are medically ne: Alejandra Catheter Subjective Patient was seen and evaluated in follow up. No overnight events. Patient complains of LLE pain. vital signs Vital Sign Date Time Temp Pulse Resp B/P (MAP) Pulse Ox O2 Delivery O2 Flow Rate FiO2 07/22/25 09:00 98.4 62 18 127/72 (90) 98 98.4 07/22/25 08:00 Room Air* 0 21 Total Intake and Output 07/21/25 07/21/25 07/22/25 15:00 23:00 07:00 Intake Total 354 ml 800 ml 400 ml Output Total 800 ml 1200 ml Balance 354 ml 0 ml -800 ml medications Current Medications Medications Dose Ordered Sig/Gregoria Route Start Time Stop Time Status Last Admin Dose Admin Acetaminophen/ Hydrocodone Bitart 1 tab Q4HP PRN PO 07/19/25 12:45 07/21/25 21:55 1 TAB Ondansetron HCl 4 mg Q4HP PRN IV 07/19/25 12:45 07/21/25 06:45 4 MG Docusate Sodium 100 mg BIDPRN PRN PO 07/19/25 12:45 07/22/25 09:45 100 MG Acetaminophen 650 mg Q6HP PRN PO 07/19/25 12:45 Atorvastatin Calcium 20 mg HS PO 07/19/25 22:00 Morphine Sulfate 2 mg Q4HPRN PRN IV 07/19/25 23:00 07/21/25 10:19 2 MG Nitroglycerin 0.4 mg Q5MINP PRN SL 07/20/25 10:15 Enoxaparin Sodium 30 mg DAILY SC 07/22/25 10:00 objective General Appearance: Alert, Oriented X3, Cooperative, moderate distress HEENT: Atraumatic, PERRLA, Mucous membr. 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 Fracture of right tibia/fibula. Assessment/Plan Continued all current supportive medical care. Tylenol for pain management. IV antibiotics as ordered. Additional plan as per the hospital course. Plan discussed with: Patient KENDAL SHAIKH MD Jul 22, 2025 12:52
[2025-07-23] VITALS (7 sets, daily range): BP systolic 123–141; BP diastolic 65–82; PULSE 48–61; RESP 15–18; TEMP 97.7–99.5; O2SAT 96–99
--- NOTE | 2025-07-23 12:23 | DVHPN2 ---
Subjective He is complaining of pain in his left leg He has some saturated dressings with blood He is accepting to go to SNF now Changes from previous H/P or p: Changes Eyes: No Pain, No Vision change, No Conjunctivae inflammation, No Eyelid inflammation, No Other, No Redness ENT: No Ear pain, No Ear discharge, No Nose pain, No Nose discharge, No Nose congestion, No Mouth pain, No Mouth swelling, No Throat pain, No Throat swelling, No Other Cardiovascular: No Chest Pain, No Palpitations, No Orthopnea, No Paroxysmal Noc. Dyspnea, No Edema, No Lt Headedness, No Other Respiratory: No Cough, No Dry, No Shortness of breath, No SOB with excertion, No Wheezing, No Hemoptysis, No Pleuritic Pain, No Sputum, No Other Gastrointestinal: No Nausea, No Vomiting, No Abdominal Pain, No Diarrhea, No Constipation, No Melena, No Hematochezia, No Other Genitourinary: No Dysuria, No Frequency, No Incontinence, No Hematuria, No Retention, No Other Musculoskeletal: No other, No neck pain, No shoulder pain, No arm pain, No back pain, No hand pain; leg pain (right leg); No foot pain Skin: No Rash, No Lesions, No Jaundice, No Bruising, No Other Objective Vitals Vital Signs Date Time Temp Pulse Resp B/P (MAP) Pulse Ox O2 Delivery O2 Flow Rate FiO2 07/23/25 09:00 98.5 60 17 133/75 (94) 99 98.5 07/23/25 08:10 Room Air* 0 21 Intake/Output Intake and Output 07/23/25 07:00 Intake Total 1840 ml Output Total 2600 ml Balance -760 ml Intake Oral 1840 ml Output Urine Total 2600 ml # Voids 1 General Appearance: Alert, Oriented X3, Cooperative, No acute distress Lungs: Clear to auscultation, Normal air movement Cardiovascular: Regular rate, Normal S1, Normal S2, No murmurs Abdomen: Normal bowel sounds, Soft, No tenderness Extremities: No edema Medications Current Medications Medications Dose Ordered Sig/Gregoria Route Start Time Stop Time Status Last Admin Dose Admin Acetaminophen/ Hydrocodone Bitart 1 tab Q4HP PRN PO 07/19/25 12:45 07/23/25 01:31 1 TAB Ondansetron HCl 4 mg Q4HP PRN IV 07/19/25 12:45 07/21/25 06:45 4 MG Docusate Sodium 100 mg BIDPRN PRN PO 07/19/25 12:45 07/23/25 01:31 100 MG Acetaminophen 650 mg Q6HP PRN PO 07/19/25 12:45 Atorvastatin Calcium 20 mg HS PO 07/19/25 22:00 Morphine Sulfate 2 mg Q4HPRN PRN IV 07/19/25 23:00 07/21/25 10:19 2 MG Nitroglycerin 0.4 mg Q5MINP PRN SL 07/20/25 10:15 Enoxaparin Sodium 30 mg DAILY SC 07/22/25 10:00 07/23/25 10:02 30 MG Polyethylene Glycol 17 gm DAILYPRN PRN PO 07/22/25 16:15 Laboratory Results Laboratory Tests 07/21/25 06:09 Urinalysis Test 07/19/25 18:02 Urine Color Light-yellow (Yellow) Urine Clarity Clear (Clear) Urine pH 6.0 (5.0-9.0) Urine Specific [place] 1.025 (1.001-1.035) Urine Protein Negative (Negative) Urine Ketones Negative (Negative) Urine Blood Negative /uL (Negative) Urine Nitrite Negative (Negative) Urine Bilirubin Negative (Negative) Urine Urobilinogen Normal mg/dL (Negative) Urine Leukocyte Esterase Negative /uL (Negative) Urine RBC <1 /hpf (0 - 3) Urine Microscopic WBC < 1 /HPF (0-3) Urine Squamous Epithelial Cells None seen /hpf (<5) Urine Bacteria None seen /hpf (None Seen) Urine Mucus Few (None Seen) Urine Glucose Normal mg/dL (Normal) Microbiology Microbiology Date/Time Source Procedure Growth Status 07/19/25 17:24 Nose MRSA Screen - Final Complete Assessment/Plan Assessment/Plan Left tibial plafond fracture extending proximal to the proximal third of tibia Asymptomatic sinus bradycardia PLAN: Nonweight bearing LLE Pain control Lovenox DC planning Order wheelchair 07/23/2025: Nonweightbearing on the left leg Pain control Lovenox Discharge planning The patient initially said he does not want to go to SNF but now he agrees to go because he does not have enough help at home Consult social service manager to arrange SNF for rehab Plan discussed with: Patient My Orders Orders - DALJIT GALINDO MD Procedure Category Date Status Time * [employer] CONS 07/22/25 Transmitted Consult Polyethylene Glycol PHA 07/22/25 In Process 17g Powder (Miralax 16:15 Date of Service: Jul 23, 2025 Billing Provider: DALJIT GALINDO MD Common Visit Codes: [id number] INP/OBS CARE(HIGH) DALJIT GALINDO MD Jul 23, 2025 12:23
--- NOTE | 2025-07-23 17:48 | DVHPN2 ---
Progress Note - Dictate Date Seen: Jul 23, 2025 Has the PT tested + for MRSA If YES, has PT been informed?: No Medical Necessity Reason Pt with a Central, PICC or Fol: Yes The following are medically ne: Alejandra Catheter Subjective Patient was seen and evaluated in follow up. Patient is complaining of LLE pain. Dressings were changed today as they were saturated. Patient is pending SNF placement. vital signs Vital Sign Date Time Temp Pulse Resp B/P (MAP) Pulse Ox O2 Delivery O2 Flow Rate FiO2 07/23/25 09:00 98.5 60 17 133/75 (94) 99 98.5 07/23/25 08:10 Room Air* 0 21 Total Intake and Output 07/22/25 07/22/25 07/23/25 15:00 23:00 07:00 Intake Total 240 ml 600 ml 1000 ml Output Total 1150 ml 300 ml 1150 ml Balance -910 ml 300 ml -150 ml medications Current Medications Medications Dose Ordered Sig/Gregoria Route Start Time Stop Time Status Last Admin Dose Admin Acetaminophen/ Hydrocodone Bitart 1 tab Q4HP PRN PO 07/19/25 12:45 07/23/25 01:31 1 TAB Ondansetron HCl 4 mg Q4HP PRN IV 07/19/25 12:45 07/21/25 06:45 4 MG Docusate Sodium 100 mg BIDPRN PRN PO 07/19/25 12:45 07/23/25 01:31 100 MG Acetaminophen 650 mg Q6HP PRN PO 07/19/25 12:45 Atorvastatin Calcium 20 mg HS PO 07/19/25 22:00 Morphine Sulfate 2 mg Q4HPRN PRN IV 07/19/25 23:00 07/21/25 10:19 2 MG Nitroglycerin 0.4 mg Q5MINP PRN SL 07/20/25 10:15 Enoxaparin Sodium 30 mg DAILY SC 07/22/25 10:00 07/23/25 10:02 30 MG Polyethylene Glycol 17 gm DAILYPRN PRN PO 07/22/25 16:15 objective General Appearance: Alert, Oriented X3, Cooperative, moderate distress HEENT: Atraumatic, PERRLA, Mucous membr. 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 Fracture of right tibia/fibula. Assessment/Plan Continued all current supportive medical care. Tylenol and [place] for pain management. DVT prophylactics. Additional plan as per the hospital course. Dietary Evaluation Review Recommendations by RD: Protein Supplementation Comments: 1) Add cardiac restriction to diet 2) Initiate Ensure High Protein qd 3) Encourage optimal PO intake 4) Follow-up with orthopedic surgeon and physical therapy 5) Continue to monitor I&O, labs, and skin integrity Expected Outcomes/Goals: 1) appetite and labs to improve 2) f/u in 3-5 days Plan discussed with: Patient KENDAL SHAIKH MD Jul 23, 2025 12:33
[2025-07-24] VITALS (7 sets, daily range): BP systolic 112–132; BP diastolic 72–84; PULSE 54–63; RESP 16–18; TEMP 97.9–98.7; O2SAT 98–100
--- NOTE | 2025-07-24 13:27 | DVHPN2 ---
Subjective No new complaints The patient has changes mind again and now he says he just wants to go home with home health He does not want to go to SNF Changes from previous H/P or p: Changes Eyes: No Pain, No Vision change, No Conjunctivae inflammation, No Eyelid inflammation, No Other, No Redness ENT: No Ear pain, No Ear discharge, No Nose pain, No Nose discharge, No Nose congestion, No Mouth pain, No Mouth swelling, No Throat pain, No Throat swelling, No Other Cardiovascular: No Chest Pain, No Palpitations, No Orthopnea, No Paroxysmal Noc. Dyspnea, No Edema, No Lt Headedness, No Other Respiratory: No Cough, No Dry, No Shortness of breath, No SOB with excertion, No Wheezing, No Hemoptysis, No Pleuritic Pain, No Sputum, No Other Gastrointestinal: No Nausea, No Vomiting, No Abdominal Pain, No Diarrhea, No Constipation, No Melena, No Hematochezia, No Other Genitourinary: No Dysuria, No Frequency, No Incontinence, No Hematuria, No Retention, No Other Musculoskeletal: No other, No neck pain, No shoulder pain, No arm pain, No back pain, No hand pain; leg pain (right leg); No foot pain Skin: No Rash, No Lesions, No Jaundice, No Bruising, No Other Objective Vitals Vital Signs Date Time Temp Pulse Resp B/P (MAP) Pulse Ox O2 Delivery O2 Flow Rate FiO2 07/24/25 08:47 98.0 54 18 130/84 (99) 99 98.0 07/24/25 08:08 Room Air* 0 21 Intake/Output Intake and Output 07/24/25 07:00 Intake Total 1400 ml Output Total 1850 ml Balance -450 ml Intake Oral 1400 ml Output Urine Total 1850 ml # Voids 4 # Bowel Movements 1 General Appearance: Alert, Oriented X3, Cooperative, No acute distress Lungs: Clear to auscultation, Normal air movement Cardiovascular: Regular rate, Normal S1, Normal S2, No murmurs Abdomen: Normal bowel sounds, Soft, No tenderness Extremities: No edema Medications Current Medications Medications Dose Ordered Sig/Gregoria Route Start Time Stop Time Status Last Admin Dose Admin Acetaminophen/ Hydrocodone Bitart 1 tab Q4HP PRN PO 07/19/25 12:45 07/24/25 03:46 1 TAB Ondansetron HCl 4 mg Q4HP PRN IV 07/19/25 12:45 07/21/25 06:45 4 MG Docusate Sodium 100 mg BIDPRN PRN PO 07/19/25 12:45 07/23/25 01:31 100 MG Acetaminophen 650 mg Q6HP PRN PO 07/19/25 12:45 Atorvastatin Calcium 20 mg HS PO 07/19/25 22:00 Morphine Sulfate 2 mg Q4HPRN PRN IV 07/19/25 23:00 07/21/25 10:19 2 MG Nitroglycerin 0.4 mg Q5MINP PRN SL 07/20/25 10:15 Enoxaparin Sodium 30 mg DAILY SC 07/22/25 10:00 07/24/25 10:16 30 MG Polyethylene Glycol 17 gm DAILYPRN PRN PO 07/22/25 16:15 Laboratory Results Laboratory Tests 07/21/25 06:09 Urinalysis Test 07/19/25 18:02 Urine Color Light-yellow (Yellow) Urine Clarity Clear (Clear) Urine pH 6.0 (5.0-9.0) Urine Specific [place] 1.025 (1.001-1.035) Urine Protein Negative (Negative) Urine Ketones Negative (Negative) Urine Blood Negative /uL (Negative) Urine Nitrite Negative (Negative) Urine Bilirubin Negative (Negative) Urine Urobilinogen Normal mg/dL (Negative) Urine Leukocyte Esterase Negative /uL (Negative) Urine RBC <1 /hpf (0 - 3) Urine Microscopic WBC < 1 /HPF (0-3) Urine Squamous Epithelial Cells None seen /hpf (<5) Urine Bacteria None seen /hpf (None Seen) Urine Mucus Few (None Seen) Urine Glucose Normal mg/dL (Normal) Microbiology Microbiology Date/Time Source Procedure Growth Status 07/19/25 17:24 Nose MRSA Screen - Final Complete Assessment/Plan Assessment/Plan Left tibial plafond fracture extending proximal to the proximal third of tibia Asymptomatic sinus bradycardia PLAN: Nonweight bearing LLE Pain control Lovenox DC planning Order wheelchair 07/23/2025: Nonweightbearing on the left leg Pain control Lovenox Discharge planning The patient initially said he does not want to go to SNF but now he agrees to go because he does not have enough help at home Consult social work faculty member to arrange SNF for rehab 07/24/2025: Cancel the SNF arrangements The patient would like to go home with home health now Consult social work faculty member to arrange home health for wound care and physical therapy Order walker with elevated riser Discharge planning in 1-2 days Plan discussed with: Patient Date of Service: Jul 24, 2025 Billing Provider: DALJIT GALINDO MD Common Visit Codes: [id number] INP/OBS CARE(HIGH) DALJIT GALINDO MD Jul 24, 2025 13:27
--- NOTE | 2025-07-24 23:47 | DVHPN2 ---
Progress Note - Dictate Date Seen: Jul 24, 2025 Has the PT tested + for MRSA If YES, has PT been informed?: No Medical Necessity Reason Pt with a Central, PICC or Fol: Yes The following are medically ne: Alejandra Catheter Subjective Patient was seen and evaluated in follow up. No overnight events. Patient is complaining of LLE pain. vital signs Vital Sign Date Time Temp Pulse Resp B/P (MAP) Pulse Ox O2 Delivery O2 Flow Rate FiO2 07/24/25 13:00 98.5 62 18 117/77 (90) 100 98.5 07/24/25 08:08 Room Air* 0 21 Total Intake and Output 07/23/25 07/23/25 07/24/25 15:00 23:00 07:00 Intake Total 150 ml 450 ml 800 ml Output Total 600 ml 1250 ml Balance 150 ml -150 ml -450 ml medications Current Medications Medications Dose Ordered Sig/Gregoria Route Start Time Stop Time Status Last Admin Dose Admin Acetaminophen/ Hydrocodone Bitart 1 tab Q4HP PRN PO 07/19/25 12:45 07/24/25 03:46 1 TAB Ondansetron HCl 4 mg Q4HP PRN IV 07/19/25 12:45 07/21/25 06:45 4 MG Docusate Sodium 100 mg BIDPRN PRN PO 07/19/25 12:45 07/23/25 01:31 100 MG Acetaminophen 650 mg Q6HP PRN PO 07/19/25 12:45 Atorvastatin Calcium 20 mg HS PO 07/19/25 22:00 Morphine Sulfate 2 mg Q4HPRN PRN IV 07/19/25 23:00 07/21/25 10:19 2 MG Nitroglycerin 0.4 mg Q5MINP PRN SL 07/20/25 10:15 Enoxaparin Sodium 30 mg DAILY SC 07/22/25 10:00 07/24/25 10:16 30 MG Polyethylene Glycol 17 gm DAILYPRN PRN PO 07/22/25 16:15 objective General Appearance: Alert, Oriented X3, Cooperative, moderate distress HEENT: Atraumatic, PERRLA, Mucous membr. 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 Fracture of right tibia/fibula. Assessment/Plan Continued all current supportive medical care. [place] for pain management. Lipitor. DVT prophylactics. Additional plan as per the hospital course. Dietary Evaluation Review Recommendations by RD: Protein Supplementation Comments: 1) Add cardiac restriction to diet 2) Initiate Ensure High Protein qd 3) Encourage optimal PO intake 4) Follow-up with orthopedic surgeon and physical therapy 5) Continue to monitor I&O, labs, and skin integrity Expected Outcomes/Goals: 1) appetite and labs to improve 2) f/u in 3-5 days Plan discussed with: Patient KENDAL SHAIKH MD Jul 24, 2025 14:35
[2025-07-25] VITALS (7 sets, daily range): BP systolic 127–140; BP diastolic 75–82; PULSE 54–65; RESP 17–18; TEMP 98.1–98.4; O2SAT 96–100
[2025-07-25] MEDS ORDERED: HYDR-4902 PO (12:55)
--- NOTE | 2025-07-25 12:58 | DVHDS2 ---
Discharge Summary Date of Admission Jul 19, 2025 at 12:45 Date of Discharge: Jul 25, 2025 Labs/Diagnostic Data: Laboratory Results Test 07/21/25 06:09 07/19/25 18:02 07/19/25 11:07 White Blood Count 10.1 10^3/uL (4.4-10.8) Red Blood Count 4.24 10^6/uL (4.5-5.90) Hemoglobin 13.4 g/dL (13.5-17.5) Hematocrit 38.0 % (41.0-53.0) Mean Corpuscular Volume 89.6 fL (80.0-100.0) Mean Corpuscular Hemoglobin 31.7 pg (28.0-32.0) Mean Corpuscular Hemoglobin Concent 35.4 g/dL (32.0-36.0) Red Cell Distribution Width 13.6 % (11.8-14.3) Platelet Count 350 10^3/uL (140-450) Mean Platelet Volume 8.0 fL (6.9-10.8) Neutrophils (%) (Auto) 69.7 % (37.0-80.0) Lymphocytes (%) (Auto) 22.4 % (10.0-50.0) Monocytes (%) (Auto) 7.2 % (0.0-12.0) Eosinophils (%) (Auto) 0.5 % (0.0-7.0) Basophils (%) (Auto) 0.2 % (0.0-2.0) Neutrophils # (Auto) 7.0 10 ^3/uL (1.6-8.6) Lymphocytes # (Auto) 2.3 10 ^3/uL (0.4-5.4) Monocytes # (Auto) 0.7 10 ^3/uL (0-1.3) Eosinophils # (Auto) 0 10 ^3/uL (0-0.8) Basophils # (Auto) 0 10 ^3/uL (0-0.2) Nucleated Red Blood Cells 0.0 % Sodium Level 140 mmol/L (136-145) Potassium Level 4.2 mmol/L (3.5-5.1) Chloride Level 103 mmol/L (98-107) Carbon Dioxide Level 29 mmol/L (20-31) Anion Gap 8 (5-15) Blood Urea Nitrogen 13 mg/dL (9-23) Creatinine 0.90 mg/dL (0.700-1.30) Glomerular Filtration Rate Calc 98 mL/min (>90) BUN/Creatinine Ratio 14.4 (10.0-20.0) Serum Glucose 88 mg/dL (74-106) Calcium Level 9.5 mg/dL (8.7-10.4) Magnesium Level 2.1 mg/dL (1.6-2.6) Total Bilirubin 0.5 mg/dL (0.2-1.0) Aspartate Amino Transferase (AST) 21 U/L (13-40) Alanine Aminotransferase (ALT) 32 U/L (7-40) Alkaline Phosphatase 110 U/L (46-116) Total Protein 7.0 g/dL (5.7-8.2) Albumin 4.2 g/dL (3.2-4.8) Urine Color Light-yellow (Yellow) Urine Clarity Clear (Clear) Urine pH 6.0 (5.0-9.0) Urine Specific [place] 1.025 (1.001-1.035) Urine Protein Negative (Negative) Urine Ketones Negative (Negative) Urine Blood Negative /uL (Negative) Urine Nitrite Negative (Negative) Urine Bilirubin Negative (Negative) Urine Urobilinogen Normal mg/dL (Negative) Urine Leukocyte Esterase Negative /uL (Negative) Urine RBC <1 /hpf (0 - 3) Urine Microscopic WBC < 1 /HPF (0-3) Urine Squamous Epithelial Cells None seen /hpf (<5) Urine Bacteria None seen /hpf (None Seen) Urine Mucus Few (None Seen) Urine Glucose Normal mg/dL (Normal) Prothrombin Time 10.5 sec (9.3-11.8) Prothrombin Time INR 0.99 (0.9-1.15) Activated Partial Thromboplast Time 25.6 SEC (24.5-34.5) B-Type Natriuretic Peptide 14.09 pg/mL (0-100) Other Laboratory Tests 07/21/25 06:09 Brief Hx & Hospital Course: Final diagnoses: Left tibial plafond fracture extending proximal to the proximal third of tibia Asymptomatic sinus bradycardia 60-year-old male was admitted for surgery for his left tibial fracture which he had done with open reduction and external fixation He did well postoperatively He was given Lovenox He was having some mild oozing from the wound and therefore the Lovenox dose was decreased Overall he did well and was seen by Physical therapy and Orthopedic surgery recommended nonweightbearing for 6 weeks He will be going home with home health A wheelchair was ordered Home health he is approved and therefore he will be discharged home today [place] and follow up with Orthopedic surgery in 2 weeks Condition at Discharge: Stable Final Diagnosis/Problems List Left tibial plafond fracture extending proximal to the proximal third of tibia Asymptomatic sinus bradycardia Discharge Disposition: Home with Health Services SNF Discharge Will this Physician continue t: No Discharge Instruct/Medications Scheduled Ascorbic Acid (Vitamin C Tablet), 500 MG GT DAILY, (Reported) Cholecalciferol (Vitamin D3), 2,000 UNIT OR DAILY, (Reported) Hydrocodone-Acetaminophen (Hydrocodone/Acetaminophen 10-325 mg), 1 TAB PO QID, (Reported) Mecobalamin (B12), 5,000 MCG SL DAILY, (Reported) Rosuvastatin Calcium (Rosuvastatin Calcium), 1 TAB PO HS, (Reported) Scheduled PRN Acetaminophen (Tylenol), 650 MG MT TIDP PRN Hydrocodone-Acetaminophen (Hydrocodone Bitartrate/AC 5-325 mg), 1 TAB PO Q6HP PRN Ibuprofen (Ibuprofen), 1 TAB PO TID PRN Discharge Statement: "Patient was advised to return to the ER or call 911 if any headaches, dizziness, shortness of breath, chest pain, abdominal pain, bleeding, fevers, or worsening of medical condition. Patient was counseled about treatment plan, medications, possible side effects, patientverbalized understanding. All questions were answered to the best of my ability. This discharge took greater then 30 minutes in planning, reviewing documentation, counseling the patient, and discussing with other team members." ASSESSMENT ASSESSMENT Assessment same Date of Service: Jul 25, 2025 Billing Provider: DALJIT GALINDO MD Common Visit Codes: 07253-ATR/OBS DISCH DAY >30min DALJIT GALINDO MD Jul 25, 2025 12:58
--- NOTE | 2025-07-26 00:11 | DVHPN2 ---
Progress Note - Dictate Date Seen: Jul 25, 2025 Has the PT tested + for MRSA If YES, has PT been informed?: No Medical Necessity Reason Pt with a Central, PICC or Fol: Yes The following are medically ne: Alejandra Catheter Subjective Patient was seen and evaluated in follow up. Patient has no new complaints at this time. Patient denies any cardiac symptoms. Patient is cardiac stable for discharge. vital signs Vital Sign Date Time Temp Pulse Resp B/P (MAP) Pulse Ox O2 Delivery O2 Flow Rate FiO2 07/25/25 19:12 98.3 54 18 98 07/25/25 17:12 137/82 (100) 07/25/25 08:00 Room Air* 0 21 Total Intake and Output 07/25/25 07/25/25 07/26/25 14:59 22:59 06:59 Intake Total 625 ml Output Total 1200 ml Balance -575 ml objective General Appearance: Alert, Oriented X3, Cooperative, moderate distress HEENT: Atraumatic, PERRLA, Mucous membr. 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 Fracture of right tibia/fibula. Assessment/Plan Continued all current supportive medical care. [place] for pain management. Lipitor. DVT prophylactics. Additional plan as per the hospital course. Dietary Evaluation Review Recommendations by RD: Protein Supplementation Comments: 1) Add cardiac restriction to diet 2) Initiate Ensure High Protein qd 3) Encourage optimal PO intake 4) Follow-up with orthopedic surgeon and physical therapy 5) Continue to monitor I&O, labs, and skin integrity Expected Outcomes/Goals: 1) appetite and labs to improve 2) f/u in 3-5 days Plan discussed with: Patient KENDAL SHAIKH MD Jul 26, 2025 00:11
== END 2025-07-25 19:38 | disposition home health service (06) | DRG 313 ==
LOC: ER 10:26 → OVERFLOW 12:45 → WEST WING 16:51 → TELE-WESTW 07-20 21:09 → WEST WING 07-22 01:43
PROVIDERS: ADMIT Internal Medicine Geriatric Medicine; ATTEND Internal Medicine Geriatric Medicine
PROC: 0QHH35Z Insertion of External Fixation Device into Left Tibia, Percutaneous Approach (ICD-10-PCS; principal; 2025-07-20 07:45)
DX: S82.872A Displaced pilon fracture of left tibia, initial encounter for closed fracture (principal); F17.200 Nicotine dependence, unspecified, uncomplicated; R00.1 Bradycardia, unspecified; Z80.0 Family history of malignant neoplasm of digestive organs; V86.56XA Driver of dirt bike or motor/cross bike injured in nontraffic accident, initial encounter; Y93.89 Activity, other specified; Y92.89 Other specified places as the place of occurrence of the external cause; Y99.8 Other external cause status; Z88.0 Allergy status to penicillin
CPT/HCPCS: 36415; 71045; 73590; 76000; 80048; 80053; 81001; 83735; 83880; 85025; 85610; 85730; 86850; 86900; 86901; 87081; 93005; 96374; 96375; 97110; 97163; G0378; J0131; J0330; J1100; J2250; J2370; J2405; J2704; J3490

== ENCOUNTER 2025-08-31 06:05 | Day surgery (SDC) | payer MEDICAID ==
[2025-08-29 10:27] LABS: Hematocrit 43.5 % (41.0-53.0); Hemoglobin 14.7 g/dL (13.5-17.5); Mean Corpuscular Hemoglobin 30.9 pg (28.0-32.0); Mean Corpuscular Volume 91.3 fL (80.0-100.0); Nucleated Red Blood Cells % 0.1 %
[2025-08-29 10:34] LABS: Urine Protein, UAD Negative (Negative)
[2025-08-29 10:39] LABS: INR 0.96 (0.9-1.15); Partial Thromboplastin Time 25.4 SEC (24.5-34.5); Prothrombin Time 10.2 sec (9.3-11.8)
[2025-08-29 10:51] LABS: Alanine Aminotransferase 25 U/L (7-40); Albumin 4.4 g/dL (3.2-4.8); BUN/Creatinine Ratio 13.0 (10.0-20.0); Bilirubin, Total 0.3 mg/dL (0.2-1.0); Blood Urea Nitrogen 14 mg/dL (9-23); Calcium 9.7 mg/dL (8.7-10.4); Carbon Dioxide 30 mmol/L (20-31); Glucose 91 mg/dL (74-106); Potassium 4.6 mmol/L (3.5-5.1); Sodium 143 mmol/L (136-145); Total Protein 7.5 g/dL (5.7-8.2)
[2025-08-29 10:52] LABS: Alkaline Phosphatase 122 U/L (46-116)
[2025-08-29 10:59] LABS: Anion Gap 5 (5-15)
[2025-08-29 11:03] LABS: Chloride 108 mmol/L (98-107)
[~2025-08-31] VITALS: Ht 180.3 cm; Wt 72.1 kg
[~2025-08-31 06:05] MED LIST changes: -ACE650RS PR; +HYDR-4902 PO; -IBUP-1454 PO
[2025-08-31] MEDS ORDERED: BUPIVACAINE 0.25% INJ 50ML VIAL ONE (07:02)
[2025-08-31] MEDS ORDERED: fentaNYL CITRATE 100 MCG/2 ML VL ONE (07:13)
[2025-08-31] MEDS ORDERED: PROPOFOL 10 MG/ML 20 ML IV ONE (07:13)
[2025-08-31] MEDS ORDERED: MEPERIDINE HCL (25 MG/ML) 1ML VIAL ONE ×2 (07:13→07:46)
[2025-08-31] MEDS: ceFAZolin 2 GM/D5W50ml 50 ML IV ONE (07:26)
[2025-08-31] MEDS ORDERED: ONDANSETRON HCL 4 MG/2 ML VIAL ONE (07:46)
[2025-08-31 07:56] VITALS: PULSE 71; RESP 14; TEMP 98.3; O2SAT 96
[2025-08-31] MEDS ORDERED: ACETAMINOPHEN IV 1000 MG/100ML (10MG/ML) IV PRN (08:00)
[2025-08-31] MEDS ORDERED: MEPERIDINE HCL (25 MG/ML) 1ML VIAL IV PRN (08:00)
[2025-08-31] MEDS ORDERED: HYDROmorphone HCL 2 MG/ML VL/or syr ONE (08:17)
[2025-08-31] MEDS: HYDROmorphone HCL 2 MG/ML VL/or syr IV PRN (08:22)
--- NOTE | 2025-08-31 08:24 | DVHOP2 ---
Operative Report - 2 Report Details Date: 08/31/25 Preop Diagnosis: retained ililzarov external fixtor s/p ex fisx of comminuted tibial plafond fracture on 07/19/25, 6 wks ago. Postop Diagnosis: same Surgeon: Serge Belle MD Dry Cell Sealer: none Anesthesiologist: Dr Law Anesthesia: General Drains: none Implant: none Consent: The patient was informed of the risks and benefits of the procedure. These include but are not limited to complications of anesthesia, postoperative infection, incomplete relief of symptoms, recurrence of symptoms, damage to blood vessels, nerves and tendons, deep venous thrombosis, pulmonary embolism and possible need for repeat surgery in the future. Complications: none Estimated Blood Loss: minimal Fluids: 250 cc crystalloid Findings: retained ex-fix, no pin tract infections, fracture well aligned, good early bridging callus Indications for Surgery: pins were intended to be temporary into foot to hold foot dorsiflexed until pt able to dorsiflex foot on own accord, to prevent flexion contracture Name of Procedure Performed removal of ex-fix pins from left foot Procedure Details Procedure Details: Pt brought in to the OR , received Ancef 1 g ivpb preoperatively, general anesthesia, non-sterile procedure, time out performed, confirmation left side correct side and pin removal from foot correct procedure after review of operative consent, my initials on foot and history/physical lee showed good alignment of fracture with good early bridging callus pin sites clean , no infection two wires in foot cut, painted with betadine, pulled from foot. PROM left ankle, DF 10, PF 15 plan PWB left LE with crutches, removal remainder of ex fix in 4 wks Specimen: none Condition Stable Disposition Home SERGE BELLE MD Aug 31, 2025 08:24
[2025-08-31] MEDS: ONDANSETRON HCL 4 MG/2 ML VIAL IV PRN (09:02)
[2025-08-31 09:41] VITALS: BP 143/75; PULSE 61; RESP 16; O2SAT 97
--- NOTE | 2025-08-31 10:34 | DVH ---
C-ARM FLUOROSCOPY: PROCEDURE: Left tibia/ fibula ORIF FLUOROSCOPY TIME: 2.8 sec DAP: 0.09 mgy FINDINGS: Spot intraoperative C arm radiographs demonstrating Left tibia/ fibula ORIF. IMPRESSION: Please refer to surgical report for detailed findings.
--- NOTE | 2025-08-31 10:34 | DVH ---
C-ARM FLUOROSCOPY: PROCEDURE: Left tibia/ fibula ORIF FLUOROSCOPY TIME: 2.8 sec DAP: 0.09 mgy FINDINGS: Spot intraoperative C arm radiographs demonstrating Left tibia/ fibula ORIF. IMPRESSION: Please refer to surgical report for detailed findings.
== END 2025-08-31 10:26 | disposition home or self-care (01) ==
LOC: SUR 06:05
PROVIDERS: ATTEND Orthopaedic Surgery
DX: Z47.2 Encounter for removal of internal fixation device (principal); G89.29 Other chronic pain; I10 Essential (primary) hypertension; Z79.899 Other long term (current) drug therapy; Z98.890 Other specified postprocedural states; Z88.0 Allergy status to penicillin
CPT/HCPCS: 20694; 36415; 73590; 80053; 81001; 85025; 85610; 85730; 87168; J0690; J1171; J2175; J2405; J2704; J3010; 76000; J3490

== ENCOUNTER 2025-09-06 10:15 | Inpatient (IN) | payer MEDICAID ==
[~2025-09-06] VITALS: Ht 180.3 cm; Wt 68.1 kg
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
[2025-09-06 11:28] LABS: Chloride 107 mmol/L (98-107); Potassium 4.0 mmol/L (3.5-5.1); Sodium 142 mmol/L (136-145)
[2025-09-06 11:29] LABS: Anion Gap 6 (5-15); Carbon Dioxide 29 mmol/L (20-31)
[2025-09-06 11:30] LABS: Calcium 9.8 mg/dL (8.7-10.4)
[2025-09-06 11:34] LABS: BUN/Creatinine Ratio 14.0 (10.0-20.0); Blood Urea Nitrogen 13 mg/dL (9-23); Glucose 98 mg/dL (74-106)
[2025-09-06 11:52] LABS: Hematocrit 41.7 % (41.0-53.0); Hemoglobin 14.4 g/dL (13.5-17.5); Mean Corpuscular Hemoglobin 31.1 pg (28.0-32.0); Mean Corpuscular Volume 90.0 fL (80.0-100.0); Nucleated Red Blood Cells % 0.3 %
--- NOTE | 2025-09-06 16:24 | DVH ---
CHEST RADIOGRAPH Indication: cp Technique: XY CHEST XRAY 1 VIEW Comparison: None FINDINGS: The cardiac silhouette is unremarkable. The lungs demonstrate no pulmonary airspace consolidation. The pulmonary vasculature is unremarkable. There is no pleural effusion. There is no pneumothorax. Thoracic fusion hardware. IMPRESSION: No pulmonary airspace consolidation.
[2025-09-06] MEDS ORDERED: ACETAMINOPHEN 325 MG TAB PO PRN (16:30)
[2025-09-06] MEDS ORDERED: DOCUSATE SOD 100 MG CAP PO PRN (16:30)
[2025-09-06] MEDS ORDERED: ONDANSETRON HCL 4 MG/2 ML VIAL IV PRN (16:30)
[2025-09-06 16:45] LABS: INR 0.96 (0.9-1.15); Partial Thromboplastin Time 26.8 SEC (24.5-34.5); Prothrombin Time 10.2 sec (9.3-11.8)
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
[2025-09-06 18:30] VITALS: BP 118/73; PULSE 57; RESP 19; TEMP 97.7; O2SAT 98
[2025-09-06 18:31] VITALS: BP 118/73; PULSE 57; RESP 19; TEMP 97.7; O2SAT 98
--- NOTE | 2025-09-06 19:25 | DVHINCON2 ---
Consult Note Consult Consult Note HPI Franklin Archer, a patient with a known history of left tibia/fibula fracture, was evaluated in ER today per request of Dr. Thornton. The patient underwent Ilizarov external full ring fixation of the left tibia approximately six weeks ago with Dr. Sequeira. He presents today for pre-operative evaluation and hospital admission for scheduled hardware removal tomorrow, as his fracture has demonstrated satisfactory healing. The patient reports doing well overall. He has been weight-bearing as tolerated and notes good functional progress without significant pain. He denies any new trauma, falls, fever, chills, redness, drainage, or worsening pain. Past Surgical History Ilizarov external full ring fixation of left tibia performed by Dr. Thornton, 6 weeks ago Review of Systems General: No fever, chills, or weight loss MSK: No increased pain at surgical site; tolerating WBAT Skin: No erythema, warmth, edema, or discharge at hardware site Neuro: No numbness, tingling, or weakness in the left lower extremity Physical Examination General: Alert, cooperative, no distress Left Lower Extremity: Ilizarov external full ring fixation surgical/Pin incisions w/ No erythema, no warmth, no edema,No drainage from pin sites No tenderness over tibial shaft Compartments soft, non-tender ROM of ankle and knee groslsy intact and well tolerated Sensation intact to light touch distally Pulses palpable; capillary refill < 2 seconds Assessment 1. Status post left tibia/fibula fracture 2. Status post Ilizarov external full ring fixation 6 weeks progressing well 3. Indication for scheduled hardware removal, Preop The patient is clinically stable with a well-healing fracture and no signs of infection or complications. He is appropriate for operative management as planned. Plan Hospitalist team/Er TEAM RECS: Admit under hospitalist, Clear for Surgery Scheduled procedure tomorrow 0700 morning, for hardware removal (Ilizarov external full ring fixation) and /or Additional procedures as indicated intraoperatively NPO after midnight Consent obtained for left tibia hardware removal and any additional necessary procedures Pain control: per ER/Hospitalist Maintain WBAT left lower extremity unless otherwise instructed post-op Pre-operative labs and clearance as needed per standard protocol Surgery scheduled for [address] Thornton All patient and family questions addressed; they express understanding and agreement with the plan Plan discussed with: Patient, Other (bedside nurse) Visit Coding Surgery Date of Service if different f: Sep 06, 2025 Billing Provider: QUINN ALLEN Surgery Visit Codes: [id number] - INP CONSULT <55 MIN QUINN ALLEN Sep 06, 2025 19:25
[2025-09-06 20:00] VITALS: PULSE 53; RESP 18; O2SAT 96
[2025-09-06 21:00] VITALS: BP 133/62; PULSE 53; RESP 20; TEMP 98.2; O2SAT 96
[2025-09-06] MEDS: ceFAZolin 1GM/50ML 50 ML IV SCH (22:45)
[2025-09-06] MEDS: HYDROcodone-ACET 10/325MG TAB PO PRN (22:58)
[2025-09-07] VITALS (9 sets, daily range): BP systolic 124–156; BP diastolic 53–89; PULSE 48–67; RESP 12–20; TEMP 97.8–98.1; O2SAT 96–100
[2025-09-07] MEDS ORDERED: MORPHINE SULFATE INJ 2 MG/ml SYRG IV PRN (06:45)
[2025-09-07] MEDS ORDERED: HYDROmorphone HCL 2 MG/ML VL/or syr IV PRN ×2 (06:45)
[2025-09-07] MEDS ORDERED: MORPHINE SULFATE 4 MG/ML SYR/VIAL IV PRN (06:45)
[2025-09-07] MEDS ORDERED: ONDANSETRON HCL 4 MG/2 ML VIAL ONE (06:58)
[2025-09-07] MEDS ORDERED: PROPOFOL 10 MG/ML 20 ML IV ONE (06:58)
[2025-09-07] MEDS ORDERED: fentaNYL CITRATE 100 MCG/2 ML VL ONE (06:58)
[2025-09-07] MEDS ORDERED: LIDOCAINE 1% INJ PF 5ML AMP ONE (06:58)
[2025-09-07] MEDS ORDERED: KETAMINE 50mg/ML 1ml syringe ONE (06:58)
[2025-09-07] MEDS ORDERED: MIDAZOLAM HCL 2MG/2ML 2ml VIAL (1mg/ml) ONE ×2 (06:58→07:34)
[2025-09-07] MEDS ORDERED: SODIUM CHLORIDE LOCK 10 ML ONE (06:58)
[2025-09-07] MEDS: ceFAZolin 2 GM/D5W50ml 50 ML IV ONE (07:11)
[2025-09-07 07:16] LABS: Hematocrit 40.8 % (41.0-53.0); Hemoglobin 14.3 g/dL (13.5-17.5); Mean Corpuscular Hemoglobin 31.6 pg (28.0-32.0); Mean Corpuscular Volume 90.3 fL (80.0-100.0); Nucleated Red Blood Cells % 0.1 %
[2025-09-07 07:20] LABS: Alanine Aminotransferase 21 U/L (7-40); Alkaline Phosphatase 113 U/L (46-116); Anion Gap 7 (5-15); BUN/Creatinine Ratio 19.6 (10.0-20.0); Blood Urea Nitrogen 20 mg/dL (9-23); Calcium 9.6 mg/dL (8.7-10.4); Carbon Dioxide 29 mmol/L (20-31); Glucose 84 mg/dL (74-106); Potassium 4.1 mmol/L (3.5-5.1); Sodium 143 mmol/L (136-145); Total Protein 7.2 g/dL (5.7-8.2)
[2025-09-07 07:21] LABS: Albumin 4.2 g/dL (3.2-4.8); Bilirubin, Total 0.4 mg/dL (0.2-1.0)
[2025-09-07 07:25] LABS: Chloride 107 mmol/L (98-107)
--- NOTE | 2025-09-07 08:01 | ECG ---
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
[2025-09-07] MEDS: KETOROLAC TROMETH 30 MG/ML 1ML VIAL IV ONE (08:21)
--- NOTE | 2025-09-07 08:30 | DVHOP2 ---
Operative Report - 2 Report Details Date: 09/07/25 Preop Diagnosis: left leg retained ring ex fixator Postop Diagnosis: same Surgeon: Serge Belle MD Top Precipitator Operator: none Anesthesiologist: Dr Law Anesthesia: Mac Drains: none Implant: none Consent: The patient was informed of the risks and benefits of the procedure. These include but are not limited to complications of anesthesia, postoperative infection, incomplete relief of symptoms, recurrence of symptoms, damage to blood vessels, nerves and tendons, deep venous thrombosis, pulmonary embolism and possible need for repeat surgery in the future. Complications: none Estimated Blood Loss: minimal Fluids: 200cc crystalloid Findings: one infected pin, distal anterior stable well aligned fracture with bridging callus Indications for Surgery: infected distal pin, planned removal of ex fix Name of Procedure Performed removal of ring external fixator left LE Procedure Details Procedure Details: Pt brought into the operatingn room, received Ancef 2 G ivpb preoperatively, MAC anesthesia, removal of ex fix with wrenches , plyers, one pin tract with mild purulent drainage, the distal anterior site, all other pin sites clean, fracture shown to be well aligned and stable to stress under c arm fluoro q tip used to place peroxide into infected pin tract other pin sites cleaned with betadine, steriile dry dressing walker boot placed no drains, specimens or complications Specimen: nonne Condition Stable Disposition Still a Patient SERGE BELLE MD Sep 07, 2025 08:30
[2025-09-07] MEDS: METOCLOPRAMIDE HCL 5MG/ml INJ 2ml VIAL IV PRN (08:31)
--- NOTE | 2025-09-07 09:27 | DVH ---
C-ARM FLUOROSCOPY: PROCEDURE: Removal of external fixator lower leg FLUOROSCOPY TIME: 4 sec DAP: 0.08 mgy FINDINGS: Spot intraoperative C arm radiographs demonstrating removal of external hardware lower leg. IMPRESSION: Please refer to surgical report for detailed findings.
[2025-09-07] MEDS: D5W/SOD CHL 0.45%/KCL 20MEQ 1,000 ML IV SCH (12:49)
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
[2025-09-07] MEDS: ceFAZolin 1GM/50ML 50 ML IV SCH (16:42)
[2025-09-08 01:00] VITALS: BP 128/85; PULSE 50; RESP 17; TEMP 98.2; O2SAT 100
[2025-09-08 05:00] VITALS: BP 134/73; PULSE 52; RESP 17; TEMP 97.7; O2SAT 100
[2025-09-08 08:00] VITALS: PULSE 71; RESP 18; O2SAT 96
[2025-09-08 08:36] VITALS: BP 124/78; PULSE 50; RESP 16; TEMP 97.7; O2SAT 97
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
[2025-09-08] MEDS ORDERED: HYDR-4798 PO (10:52)
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
[2025-09-08 11:55] VITALS: BP 126/70; PULSE 69; RESP 18; TEMP 36.5; O2SAT 95
[2025-09-08 12:33] VITALS: BP 136/81; PULSE 55; RESP 16; TEMP 97.8; O2SAT 100
== END 2025-09-08 13:50 | disposition home or self-care (01) | DRG 349 ==
LOC: ER 10:15 → OVERFLOW 16:28 → WEST WING 22:40
PROVIDERS: ADMIT Family Medicine; ATTEND Family Medicine
PROC: 0QPKX5Z Removal of External Fixation Device from Left Fibula, External Approach (ICD-10-PCS; 2025-09-07)
PROC: 0QPHX5Z Removal of External Fixation Device from Left Tibia, External Approach (ICD-10-PCS; principal; 2025-09-07 07:41)
DX: T84.625A Infection and inflammatory reaction due to internal fixation device of left fibula, initial encounter (principal); F17.200 Nicotine dependence, unspecified, uncomplicated; G89.29 Other chronic pain; Y83.8 Other surgical procedures as the cause of abnormal reaction of the patient, or of later complication, without mention of misadventure at the time of the procedure; Z88.0 Allergy status to penicillin; Y92.89 Other specified places as the place of occurrence of the external cause
CPT/HCPCS: 36415; 71045; 73590; 76000; 80048; 80053; 85025; 85610; 85652; 85730; 93005; G0378; J1885; J2250; J2405; J2704